=== PATIENT | female | born 1980 | race Caucasian/White ===

== ENCOUNTER 2023-10-14 09:46 | Outpatient (CLI) | payer OTHER, SELFPAY ==
--- NOTE | 2023-10-14 09:46 | MM_ITS ---
PROCEDURE INFORMATION: Exam: MG Bilateral Screening 3D Mammography Exam date and time: 10/14/2023 9:43 AM Age: 43 years old Clinical indication: Screening mammogram TECHNIQUE: Imaging protocol: Bilateral Screening tomosynthesis and 2D mammography including computer-aided detection (CAD) when performed. COMPARISON: No relevant prior studies available. FINDINGS: MAMMOGRAPHY: Breast composition: There are scattered areas of fibroglandular density. Mass: None. Architectural distortion: No new or suspicious architectural distortion. Calcifications: No new or suspicious calcifications are present Asymmetric density: No new or suspicious asymmetric density is present Skin thickening: None. Axillary adenopathy: None. Implants: Subpectoral saline augmentation implants are present. IMPRESSION: No mammographic evidence of malignancy. Recommend annual screening mammography unless otherwise clinically indicated. ASSESSMENT: BI-RADS category 1: Negative
== END 2023-10-14 23:59 ==
LOC: RAD 09:46
PROVIDERS: PCP Nurse Practitioner; Visit Provider Obstetrics & Gynecology
DX: Z12.31 Encounter for screening mammogram for malignant neoplasm of breast (principal)
CPT/HCPCS: 77063; 77067

== ENCOUNTER 2023-11-12 15:45 | Outpatient (CLI) | payer OTHER, SELFPAY ==
[2023-11-12 16:02] LABS: Basophils # 0.1 K/mm3 (0-0.2); Basophils % 0.9 % (0.1-2.0); Eosinophils # 0.2 K/mm3 (0.0-0.4); Eosinophils % 1.8 % (0.1-12.0); Hematocrit 40.3 % (37.0-47.0); Hemoglobin 13.3 g/dL (12.2-16.2); Lymphocytes # 2.9 K/mm3 (0.7-4.5); Lymphocytes % 29.6 % (10-50); Mean Corpuscular Volume 90.9 fl (81-99); Mean Platelet Volume 8.8 fl (7.4-10.4); Monocytes # 0.4 K/mm3 (0.1-1.0); Monocytes % 4.6 % (1.7-9.3); Neutrophils # 6.1 K/mm3 (1.8-7.8); Neutrophils % 63.2 % (37.0-80.0); Platelet Count 281 K/mm3 (142-424); Red Blood Count 4.43 M/mm3 (4.20-5.40); Red Cell Distribution Width 14.3 % (11.5-17.5); White Blood Count 9.7 K/mm3 (4.8-10.8)
[2023-11-12 16:43] LABS: Alanine Aminotransferase 21 U/L (12-78); Albumin Level 4.3 g/dl (3.5-5.0); Albumin/Globulin Ratio 1.4 (1.1-1.8); Alkaline Phosphatase 86 U/L (38-126); Anion Gap 12.1 mEq/L (5-15); Aspartate Amino Transferase 22 U/L (14-36); Bilirubin,Total 0.3 mg/dl (0.2-1.3); Blood Urea Nitrogen 12 mg/dl (7-17); Calcium 9.2 mg/dl (8.4-10.2); Carbon Dioxide 23 mmol/L (22.0-30.0); Chloride 107 mmol/L (98-107); Estimated Glomerular Filt Rate 90 ml/min (>60); GFR (African American) 109 ML/MIN (>60); Glucose 99 mg/dl (74-100); Potassium 4.1 mmoL/L (3.5-5.1); Sodium 138 mmol/L (136-145); Total Protein,Serum 7.3 g/dl (6.3-8.2)
[2023-11-12 17:01] LABS: HCG,Quantitative < 2 mIU/ml (0-5.42)
== END 2023-11-12 23:59 ==
LOC: LAB 15:47
PROVIDERS: PCP Nurse Practitioner; Visit Provider Obstetrics & Gynecology
DX: N93.9 Abnormal uterine and vaginal bleeding, unspecified (principal)
CPT/HCPCS: 36415; 80053; 84702; 85025

== ENCOUNTER 2023-11-19 05:52 | Day surgery (SDC) | payer OTHER, SELFPAY ==
[2023-11-15 09:01] VITALS: BMI 41.6
[2023-11-19] VITALS (11 sets, daily range): BP systolic 120–146; BP diastolic 70–90; PULSE 71–95; RESP 15–18; TEMP 36.2–43; O2SAT 94–100
[2023-11-19 06:19] LABS: Urine Pregnancy, HCG Qual. Negative (Negative)
[2023-11-19] MEDS: LACTATED RINGERS 1000ML 1,000 ML 100 ML IV (06:20)
--- NOTE | 2023-11-19 06:49 | EXP.ANES.CKL ---
[facility] Disclaimer: The information contained in this section may have been updated after the patient was seen, as this information can be updated by other users. Medical History Obesity History of anxiety History of depression Surgical History Hx of colposcopy with cervical biopsy Hx of tubal ligation Hx of cholecystectomy Hx of breast augmentation Hx of section History of placement of ear tubes Hx of tonsillectomy Family History Mother Cancer Breast cancer Grandfather Cancer Stomach cancer Grandmother FHx: mental illness Anxiety and depression. Grandmother Diabetes Social History Smoking Status: Current some day smoker alcohol intake: current substance use type: marijuana current occupational status: employed Travel in the last 8 weeks: None [facility] Anesthesia Checklist Patient Identification Patient Identification: Arm Band and Family Structural Data Admitted From: Home Planned Operative Procedure/s: Hysteroscopy. Novsure. Mosure. Removl of condyloma. Consent for Planned Operative Procedure(s) Verified: Yes Verified Documents: Surgical Consent and History and Physical NPO Status Verified Time NPO: 00:00 Additional verifications Patient : No Anesthesia Reactions: Yes (nausea) Hx Blood Transfusions: No Blood Transfusion Reaction: No Cephalosporin Allergy: No Previous Colonoscopy: No Airway Assessment Mallampati Score:: Class I C-Spine Mobility Assessed: Yes TMJ Mobility Assessed: Yes Dentition: Good Dentition Neurological Assessment Level of Consciousness: Awake, Alert, Appropriate and Follows Commands Hx Seizures: No Numbness or tingling in extremities: No Anesthesia Plan Anesthesia Risk discussed: Yes ASA Class: II Anesthesia Type: General Preoperative Comments Pre-Operative Comments: PONV, Scopolamine patch.
--- NOTE | 2023-11-19 08:25 | P.PNANES_ITS ---
[facility] Anesthesia Record Part I Anesthesia Record I Intake, IV Amount: 500 Hydration: Adequate Estimated blood loss (mL): 10 Urine output (mL): 50 Blood Products used (#): none Blood Pressure: 129/70 SaO2: 94 Pulse Rate: 95 Airway Patency: Patent Respiratory Rate: 18 Temperature: 97.5 F Patient is:: Drowsy and Stable Stable to PACU at:: 08:20
[2023-11-19] MEDS: MORPHINE 2MG/ML SYRINGE 2 MG IV ×3 (08:36→08:51)
--- NOTE | 2023-11-19 09:25 | EXP.OP.NOTE ---
Date of procedure: 11/19/23 Pre-op Diagnosis:: 1. Abnormal uterine bleeding 2. Heavy uterine bleeding 3. Pelvic pain Post-op Diagnosis:: 1. Abnormal uterine bleeding 2. Heavy uterine bleeding 3. Pelvic pain Procedure performed:: Hysteroscopy, dilation, and MyoSure curettage, NovaSure endometrial ablation. Genital lesion excision Surgeon:: Paz Welsh DO NATURAL RESOURCES TECHNICIAN:: Other (Mike Barksdale) Anesthesia: GETA Estimated blood loss (mL): 10 Operative findings:: Findings: -EUA revealed an 8-week anteverted uterus with regular contour. Grade 2 apical descent. -Hysteroscopy revealed diffusely proliferative endometrium. However I do suspect there was polypoid tissue both anteriorly and posteriorly. Tubal ostia were visualized and images were obtained. -The area where genital condylomas were previously suspected on the right inner labia has almost completely resolved. There was a small lesion at the left groin/buttock area that was possibly just a skin tag versus condyloma. Operative note:: The patient was taken back to the OR where general anesthesia was obtained.? She was placed in the dorsal lithotomy position using yellowfin stirrups and sterilely prepped and draped in the usual fashion.? A timeout was performed.? A thorough vaginal exam was completed and noted above. A weighted speculum was used to visualize this cervix, a single-tooth tenaculum was applied to the anterior lip of the cervix. The cervix was slightly dilated to allow entry to the ectocervix and hydrodisection was used to get the scope the rest of the way into the cavity. The hysterscope was inserted and diffusely proliferative endometrium was noted as described above. Images were obtained of the cavity. Images of the tubal ostia were obtained..? Decision was made to proceed with the MyoSure for polypectomy/uterine curettage. Device set up, primed and zeroed. The device was used to resect endometrial polyps and proliferative endometrium. At the conclusion there was a fluid deficit less than 100 mL. Total myosure cutting time was 2minutes 40seconds. Following complete removal of the polyps the MyoSure hysteroscope was removed.? The uterus sounded to 8cm, with a cervical length of 3 cm. The Novasure device was opened, deployed, and noted to be functioning properly. The device was inserted to the fundus, set to a length of 5cm, and deployed to a width of 4.8cm. Cavity integrity was assessed and adequate. The ablation was started and a power of 132W was noted. Total ablation time was 1:03 minutes. The Novasure device was removed from the cervical os and the hysterscope was reinserted. The endometrium was noted to be successfully ablated. All instruments were removed from the vagina. Hemostasis was noted at the tenaculum sites. Pickups and Metzenbaum scissors were used to remove the vaginal skin lesion. Pressure was held and it was noted to be mostly hemostatic. The Bovie was used to touch center of the patient for hemostasis prophylaxis. This lesion will be sent to pathology for further evaluation. All counts were correct, per nursing. This concluded the procedure, the pt was awakened from anesthesia and transferred to the PACU in stable condition. The pt will be given 30mg IV Toradol postoperatively for pain control. Condition: stable Disposition: PACU Specimens:: Endometrial polyp/curettings Pelvic groin lesion Complications:: None
--- NOTE | 2023-11-20 10:13 | P.PNANES_ITS ---
[facility] Anesthesia Record Part II Anesthesia Record Part II Discharge Time: 08:50 Destination: Surgical Day Care (OP Surgery) PACU nurse assessment reviewed?: Yes Patient Condition:: Good Anesthesia Complications:: None Swallowing reflex intact?: Yes Airway Patency: Patent Cyanosis?: No Blood Pressure: 136/86 SaO2: 98 Respiratory Rate: 15 Pulse Rate: 82 Temperature: 97.2 F Mental Status: Alert & Oriented Pain level:: 4 Nausea and/or vomitting:: None Intake, IV Amount: 0 Hydration: Adequate
[2023-11-20 10:14] VITALS: BP 136/86; PULSE 82; RESP 15; TEMP 36.2; O2SAT 98
== END 2023-11-19 10:02 | disposition home or self-care (01) ==
PROVIDERS: PCP Nurse Practitioner; Visit Provider Obstetrics & Gynecology
PROC: (CPT 58563; principal; 2023-11-19 07:30)
DX: N93.9 Abnormal uterine and vaginal bleeding, unspecified (principal); R10.2 Pelvic and perineal pain; N71.1 Chronic inflammatory disease of uterus; L82.1 Other seborrheic keratosis
CPT/HCPCS: 58563; 11422; 81025; J2405

== ENCOUNTER 2025-03-02 18:37 | Outpatient (CLI) | payer OTHER, SELFPAY ==
--- OUTSIDE RECORDS SUMMARY | 2020-04-12 11:33 | XMS_ITS | Continuity of Care Document ---
Author Organization [facility] o Address [address] [place] [address] Phone Care Team Providers Care Job Placement Specialist Name Role Phone Jas WARNER, Vikas Unavailable Unavailable Procedures Procedure Date Office/outpatient visit,est, mod 2019 MRI Lwr Ext Joint wo Contrast 0 Office/outpatient visit,new, mod 2019 X-ray exam of knee, 4+ views Crutch underarm pair no wood Advance Directives Directive Yes / No Effective Date File Name No Information Encounters Encounter Description Practice Location Reason(s) For Visit Diagnoses Date Provider Providers Copied on Encounter [facility] [place] [place], [address], [place] tel:[phone] 00 [facility] [place] No Information 0 Jas Bean. Jessica [place], [id number] , [place]. tel:[phone] Referring Provider: Rickey Correa E [facility] [place], [address] . tel:[phone] Office/outpat ient visit,est, mod [facility] [place], [address] [place] [address] [place], [address], [place] tel:[phone] 00 [facility] [place] Pain in left kneeLoose body in knee, left kneeOther articular cartilage disorders, unspecified site 0 Jas Bean. Rickey E [place], [place], [address] [place] [address] , [place]. [phone] Referring Provider: Vikas Ley, [address] [place], [address] . tel:[phone] [facility], [facility] E [place], [place], [facility], tel:[phone] 00 [facility] No Information 0 Jas Vikas. Rickey [address] Jessica [place]ahn[place], [place], [address] [place] [address] , [place]. [phone] Referring Provider: Vikas Ley, [address] [place], [address] . tel:[phone] Office/outpat ient visit,[facility] [place] [place], [place], [facility], tel:[phone] 00 [facility] Oth meniscus derangements , other medial meniscus, left knee [address], [place], [place], [address] [place] [address] , [place]. [phone] [facility] E [place], [place], [facility], tel:[phone] 00 [facility] No Information 0 Jas Bean. Rickey [address] Jessica kahn[place], [place], [address] [place] [address] , . tel:[phone] Family History Family Member Type Diagnosis Age At Onset No Information Payers Payer name Insurance type Covered constitution party ID Authorkt rebolledo(s) [place] - [id number] Social History Type Description Quantity Date Captured Comments Sex Female Smoking Status No Information Gender Identity Female Chief Complaint And Reason For Visit No Information Reason For Referral Reason For Referral No Information Plan Of Treatment Date Type Action Status Future Order: Radiology Order MR I Knee WO Contrast ([id number]), Collected on: , Sent on: Sent History Of Present Illness Encounter Date Complaint History Of Prese nt Illness No Information Functional Status Date Functional Assessmen t No Information Instructions Date Instruction Additional Infor mation No Information Assessments Type Assessment Date No Information Patient Care Teams Name Effective Dates (start - stop) Status Members No Information
--- OUTSIDE RECORDS SUMMARY | 2025-03-02 18:39 | XMS_ITS | Clinical Summary ---
Author Organization [facility] Address [address] [place] [address] Care Team Providers Care Tiler'S Assistant Name Role Phone Ev Lowery Primary Care Provider Allergies No known active allergies Medications PROPRANOLOL HCL (PROPRANOLOL PO) Take by mouth. Active Social History Tobacco Use Types Packs/Day Years Used Date Smoking Tobacco: Every Day Cigarettes Alcohol Use Standard Drinks/Week Comments No 0 (1 standard drink = 0.6 oz pur e alcohol) Comments Unknown Sex and Gender Information Value Date Recorded Sex Assigned at Not on file Legal Sex Female 4:28 PM EDT Gender Identity Not on file Sexual Orientation Not on file Last Filed Vital Signs Vital Sign Reading Time Taken Comments Blood Pressure 105/76 12/07/2016 8:00 PM EDT Pulse 70 12/07/2016 8:00 PM EDT Temperature 36.8 C (98.2 F) 12/07/2016 4:57 PM EDT Respiratory Rate 17 12/07/2016 8:00 PM EDT Oxygen Saturation 100% 12/07/2016 8:00 PM EDT Inhaled Oxygen Concentration - - Weight 114.3 kg (252 lb) 12/07/2016 5:18 PM EDT Height 170.2 cm (5' 7 ) 12/07/2016 5:16 PM EDT Body Mass Index 39.47 12/07/2016 5:16 PM EDT Plan of Treatment Not on file Insurance ANTHEM Care Teams Tiler'S Assistant Relationship Specialty Start Date End Date Ev Lowery [address] [place] [id number] PCP - General Family Medicine 12/07/16
--- OUTSIDE RECORDS SUMMARY | 2025-03-02 18:39 | XMS_ITS | Clinical Summary ---
Author Organization [facility] Address [address] [place] [address] Care Team Providers Care Slip Seat Coverer Name Role Phone Ev Lowery MD Primary Care Provi clarita Unavailable Source Comments This information has been disclosed to you from confidential records protectedfrom disclosure by state law. You shall make no further disclosure of thisinformation without the specific, written, and informed release of theindividual to whom it pertains, or as otherwise permitted by law. A generalauthorization for the release of medical or other information is not sufficientfor the purposes of therelease of HIV test results or diagnoses. [id number] Allergies No known active allergies Active Problems Problem Noted Date Diagnosed Date Abdominal pain, other specified site 07/26/2009 Urinary tract infection, site not specified 07/03 Papanicolaou smear of cervix with low grade squamous intraepithelial lesion (LGSIL) 04/12/2009 Encounter for routine gynecological examination 03/25/2009 Overview (06/02/2015): ICD-10 Transition Social History Tobacco Use Types Packs/Day Years Used Date Smoking Tobacco: Heavy Smoker Cigarettes Alcohol Use Standard Drinks/Week Comments No 0 (1 standard drink = 0.6 oz pur e alcohol) Comments Unknown Sex and Gender Information Value Date Recorded Sex Assigned at Not on file Legal Sex Female 4:16 PM EST Gender Identity Not on file Sexual Orientation Not on file Last Filed Vital Signs Vital Sign Reading Time Taken Comments Blood Pressure 126/81 11/08/2015 9:23 PM EST Pulse 76 11/08/2015 9:23 PM EST Temperature 36.8 C (98.2 F) 11/08/2015 9:09 PM EST Respiratory Rate 16 11/08/2015 9:23 PM EST Oxygen Saturation 100% 11/08/2015 9:23 PM EST Inhaled Oxygen Concentration 100% 11/08/2015 9 :23 PM EST Weight 99.8 kg (220 lb) 11/08/2015 7:37 PM EST Height 167.6 cm (5' 6 ) 11/08/2015 7:37 PM EST Body Mass Index 35.51 11/08/2015 7:37 PM EST Plan of Treatment Not on file Care Teams Slip Seat Coverer Relationship Specialty Start Date End Date Ev Lowery MD PCP - General Family Medicine 11/08/15
--- OUTSIDE RECORDS SUMMARY | 2025-03-02 18:39 | XMS_ITS | Clinical Summary ---
Author Organization [facility] Address [address] [place] [address] Care Team Providers Care Can Slider Name Role Phone Unavailable Primary Care Provider Unavailabl e Allergies No known active allergies Medications propranolol (INDERAL) 10 MG tablet Take 10 mg by mouth 2 times daily Active ibuprofen (ADVIL;MOTRIN) 800 MG tablet Take 800 mg by mouth daily as needed for Pain Active SUMATRIPTAN NA by Nasal route Active butalbital-APAP -caffeine (FIORICET) 50-300-40 MG CAPS per capsule Take 1 capsule by mouth every 4 hours as needed for Headaches or Migraine 10 capsule 9 Active Social History Tobacco Use Types Packs/Day Years Used Date Smoking Tobacco: Every Day Cigarettes Smokeless Tobacco: Never Alcohol Use Standard Drinks/Week Comments Not Currently 0 (1 standard drink = 0.6 oz pur e alcohol) Comments No Sex and Gender Information Value Date Recorded Sex Assigned at Not on file Legal Sex Female 1:33 PM EDT Gender Identity Not on file Sexual Orientation Not on file Last Filed Vital Signs Vital Sign Reading Time Taken Comments Blood Pressure 121/75 05/26/2019 3:30 PM EDT Pulse 90 05/26/2019 1:43 PM EDT Temperature 36.8 C (98.3 F) 05/26/2019 1:43 PM EDT Respiratory Rate 18 05/26/2019 1:43 PM EDT Oxygen Saturation 100% 05/26/2019 3:30 PM EDT Inhaled Oxygen Concentration - - Weight 117.5 kg (259 lb) 05/26/2019 1:43 PM EDT Height - - Body Mass Index - - Plan of Treatment Not on file Insurance
--- OUTSIDE RECORDS SUMMARY | 2025-03-02 18:39 | XMS_ITS | Clinical Summary ---
Author Organization [facility] Address [address] [place], [place] [address] Phone Care Team Providers Care Technical Cable Jointer Name Role Phone Ev Nicole MD Unavailable Un available Paul Hutchins MD Unavailable Allergies No known active allergies Medications * This document contains information received from the source organization and may not represent a complete record from that organization. busPIRone (BUSPAR) 10 mg Oral TabletIndication s:Anxiety with depression Take 1 Tablet by mouth 2 times daily. 60 Tablet 2 2 Active Additional Information Patient not taking.Reason: Unable to tolerate, Reported on 01/18/2023 ergocalciferol (VITAMIN D) 1,250 mcg (50,000 unit) Oral Capsule Take 1 Capsule by mouth once a week. 12 Capsule 1 3 Active ibuprofen (ADVIL;MOTRIN) 800 mg Oral TabletIndication s:Intractable migraine without aura and without status migrainosus,Pain in both knees, unspecified chronicity Take 1 Tablet by mouth every 8 hours as needed for Pain. 90 Tablet 2 3 Active buPROPion (WELLBUTRIN XL) 150 mg Oral Tablet Sustained Release 24 hrIndications:An xiety with depression Take 1 Tablet by mouth every morning. 30 Tablet 1 3 Active albuterol (PROVENTIL HFA;VENTOLIN HFA) 90 mcg/actuation Inhl HFA Aerosol InhalerIndicatio ns:COVID-19 virus detected INHALE 2 PUFFS BY MOUTH EVERY 4 HOURS NEEDED FOR WHEEZE 6.7 Each 4 Active Active Problems Problem Noted Date Diagnosed Date Vitamin D deficiency 03/10/2019 LAYLA II (cervical intraepithelial neoplasia II) 0 02/28/2016 Low grade squamous intraepit helial lesion on cytologic smear of cervix (LGSIL) 01/13/2016 Overview (01/13/2016): As of 01/2016, has had 3 abnormal pap smears - once during with f/u pap normal; CIN1 s/p colpo that was normal per pt; CIN1 in 11/2015 Chondromalacia of left patella 02/11/2015 History of aspiration pneumonitis 12/25/2014 History of drug abuse in remission 08/31/2013 Overview (05/01/2016): Prescription pain pills H/O suicide attempt 11/29/2012 Overview (12/25/2014): Laceration on arm and OD. Resulted in ICU admission Well woman exam with routine gynecological exam 09/23/2012 Obesity 09/23/2012 Paresthesia 07/03/2012 Anemia 07/03/2012 Weight gain 01/08/2012 Lower extremity edema 01/08/2012 Tobacco use disorder 01/08/2012 Anxiety with depression Dysplasia of cervix GERD (gastroesophageal reflux disease) Resolved Problems Problem Noted Date Diagnosed Date Resolved Date Gallstones 11/26/2018 03/10/2019 Overview (11/26/2018): Added automatically from request for surgery [id number] Other social stressor 12/25/20142018 Overview (12/25/2014): Was incarcerated in [id number]. Bipolar 2 disorder, major depressive episode 3 03/10/2019 Aspiration pneumonia 04/25/2013 015 Adjustment disorder 04/25/2013 04/27/20 13 Hypokalemia 11/29/2012 11/29/2012 Respiratory infection 10/03/20122014 Otitis media 10/03/2012 12/25/2014 Fibromyalgia 03/10/2019 ADHD (attention deficit hype ractivity disorder) 03/10/2019 Cervical dysplasia 5 Immunizations Immunization Administration Dates Next Due Influenza Vaccine, Unspecified Formulation 06/02 Moderna SARS-CoV-2 Vaccine 12+ Yrs (Light blue b order) 10/19/2020,09/07/2020 Td, Unspecified Formulation 02/01/2008 Surgical History Surgery Date Site/Laterality Comments TONSILLECTOMY TYMPANOSTOMY TUBE PLACEMENT TUBAL LIGATION SECTION 2 LACERATION REPAIR 04/24/2013 BREAST SURGERY augmentation LEEP 02/28/2016 N/A LOOP ELECTROSURGICAL EXCISION PROCEDURE ; Surgeon: Vikas Zeng MD; Location: [facility] MAIN OR; Service: Gynecology CHOLECYSTECTOMY 12/05/2018 N/A ROBOTIC CHOLECYSTECTOMY ; Surgeon: John Mendez MD; Location: [facility] MAIN OR; Service: Robotics Medical History Medical History Date Comments Cervical dysplasia had colposcop y 2008 Anxiety Fibromyalgia GERD (gastroesophageal reflux disease) ADHD (attention deficit hype ractivity disorder) Suicide attempt (HCC) 04/24/2013 laceration of forearm & od, req. icu admission. Anemia Post-operative nausea and vomiting Motion sickness Headache Vertigo Family History Medical History Relation Name Comments Early Father Stomach Cancer Maternal Grandfather Depression Maternal Grandmother Diabetes Paternal Grandfather Heart Disease Paternal Grandfather Lung Cancer Paternal Grandfather Diabetes Paternal Grandmother Hypertension Paternal Grandmother Kidney Disease Paternal Grandmother Alcohol Abuse Sister 1 Anxiety Disorder Sister 1 Depression Sister 1 Bipolar Disorder Sister 2 Anesth Problems Neg Hx Breast Cancer Neg Hx Colon Cancer Neg Hx Relation Name Status Comments Father Maternal Grandfather Maternal Grandmother Alive Mother Alive Paternal Grandfather Paternal Grandmother Alive Sister 1 Alive Sister 2 Alive Social History Tobacco Use Types Packs/Day Years Used Date Smoking Tobacco: Every Day Cigarettes 0.3 22 Smokeless Tobacco: Never Tobacco Cessation:Ready to Q uit: Not Asked; Counseling Given: Not Answered Comments:Trying To Quit Alcohol Use Standard Drinks/Week Comments No 1 (1 standard drink = 0.6 oz pur e alcohol) quit Overall Financial Resource Strain (CARDIA) Answe r Date Recorded How hard is it for you to pa y for the very basics like food, housing, medical care, and heating? Not hard at all 04/27/2020 PHQ-2 Answer Date Recorded PHQ-2 Total Score 2 01/05/2021 Hunger Vital Sign Answer Date Recorded Within the past 12 months, y ou worried that your food would run out before you got the money to buy more. Never true 04/27/20 20 Within the past 12 months, t he food you bought just didn't last and you didn't have money to get more. Never true 04/27/2020 PRAPARE - Transportation Answer Date Re corded In the past 12 months, has l ack of transportation kept you from medical appointments or from getting medications? No 04/03 In the past 12 months, has l ack of transportation kept you from meetings, work, or from getting things needed for daily living? No 04/27/2020 Sexually Active Control Partners Comments Yes Surgical Male Comments No Sex and Gender Information Value Date Recorded Sex Assigned at Not on file Legal Sex Female 5:28 PM EDT Gender Identity Not on file Sexual Orientation Not on file Occupation Industry Job Start Date Job End Date nurse Not on file Not on file Not on file Obstetrics History Para Term AB IAB SAB Ectopic Multiple Livin g Live Births 3 3 3 3 3 Date Outcome GA Total Labor Labor/2nd/3rd Weight Sex Type Anes PTL Roula A1 A5 Name Clin Term M Vag-S pont N Living Term F CS-Un spec N Living Term M CS-Un spec N Living Comments x1 x2 Last Filed Vital Signs Vital Sign Reading Time Taken Comments Blood Pressure 112/84 01/18/2023 10:47 AM EDT Pulse 84 01/18/2023 10:47 AM EDT Temperature 36.6 C (97.9 F) 01/18/2023 10:47 AM EDT Respiratory Rate 16 08/14/2021 7:16 PM EST Oxygen Saturation 98% 01/18/2023 10: 47 AM EDT Inhaled Oxygen Concentration - - Weight 116.7 kg (257 lb 3.2 oz) 023 10:47 AM EDT Height 170.2 cm (5' 7 ) 01/18/2023 10:4 7 AM EDT Body Mass Index 40.28 01/18/2023 10:47 AM EDT Plan of Treatment Health Maintenance Due Date Last Done Comments Annual Wellness Exam 1981 Pneumococcal Vaccine 0-49 (1 of 2 - PCV) 1997 DTaP/TDaP/Td (1 - Tdap) 02/02/2008 02/01/2008 HPV/Pap Cotest 2008 Breast Cancer Screening 2018 06/15/2016 Cervical Cancer Screening 01/05/2022 Pap Smear 01/05/2022 01/05/2021, 10/31, 10/19/2016, Additional history exists Hepatitis B Vaccine (3 of 3 - 19+ 3-dose series) 09/19/2023 04/16/2023, 03/19/2023 Cologuard 2023 Colon Cancer Screening 2023 Colonoscopy 2023 FIT 2023 Sigmoidoscopy 2023 Virtual Colonography 2023 COVID-19 Vaccine ( season) 2024 10/19/2020, 09/07/2020 Influenza Vaccine (Season Ended) 2025 11/11/2015 (Declined), 06/02/2011 Meningococcal B Vaccine Aged Out No l onger eligible based on patient's age to complete this topic Goals Goal Patient Goal Type Associated Problems Recent Progress Patient-Stated? Author quit smoking General Not on track( 016 11:25 AM EST) Yes Ev Nicole MD Maintain a healthy diet, exercise regularly and maintain an ideal body weight General No Felicity Andrews APRN Stay Tobacco Free Lifestyle No Felicity Andrews APRN Medical Devices Implanted Type Area Therapy Assistant Device Identifier Shelf Expiration Date Model / Serial / Lot Breast Procedures Procedure Name Priority Date/Time Associated Diagnosis Comments TELECASTING ENGINEER CYTOLOGY REQUEST (PAP ONLY) Routine 01/05/2021 1:42 PM EDT Well woman exam with routine gynecological exam MM MAMMO DIGITAL KAT SCREEN AUG BILAT Routine 06/15/2016 2:12 PM EDT Encounter for screening mammogram for breast cancer from Last 3 Months or Most Recently Relevant to Health Maintenance Results * TELECASTING ENGINEER CYTOLOGY REQUEST (PAP ONLY) (01/05/2021 1:42 PM EDT) CASE REPORT Gynecologic Cytology Report Case: [id number] Authorizing Provider: Felicity Andrews ARNP Collected: 01/05/2021 1342 Ordering Location: [facility] [place] Received: 01/05/2021 1342 First Screen: Adelso Conklin CT Specimen: LIQUID-BASED PAP - CERVICAL/ENDOCERV ICAL, Cervix, Endocervical 01/09/2021 12:33 PM EDT [facility] PAP FINAL DIAGNOSIS Negative for intraepithelial lesion or malignancy 01/09/2021 12:33 PM EDT [facility] at 1233 EDT MICROSCOPIC DESCRIPTION Microscopic examination is performed and the findings corroborate the diagnosis 01/09/2021 12:33 PM EDT [facility] PAP SMEAR ADEQUACY Satisfactory for evaluation 01/09/2021 12:33 PM EDT [facility] ENDOCERVICAL T-ZONE Transformation zone absent. This is not unusual in a woman 01/09/2021 12:33 PM EDT [facility] EMBEDDED IMAGES 12:33 PM EDT [facility] PAP DISCLAIMER The Pap Smear is a screening test that aids in the detection of cervical cancer and cancer precursors. Both false positive and false negative results can occur. The test should be used at regular intervals, and positive results should be confirmed before definitive therapy. Processed using the ThinPrep English Instructor Automated cytology screening device (Physitrack). 01/09/2021 12:33 PM EDT [facility] Thin Prep ENDOCERVICAL STRUCTURE / Unknown 01/05/2021 1:42 PM EDT 01/05/2021 1:42 PM EDT Felicity Andrews APRN CYTOLOGY ORDERABLES Final Result [facility] [address] [place] [id number] * MM MAMMO DIGITAL KAT SCREEN AUG BILAT (06/15/2016 2:12 PM EDT) Anatomical Region Laterality Modality Breast Bilateral Mammography 06/17/2016 8:04 AM EDT Impressions 06/18/2016 7:38 AM EDT Negative ([id number]) ~ RECOMMENDATION: Routine screening mammogram at age 38. ~ * The patient with a palpable abnormality, unexplained by breast imaging, should be managed on clinical basis by the attending physician. * Breast imaging has a false negative rate of 15%. * The patient was notified by mail of the results of this examination. *The patient's information was entered into a reminder system with a target due date for the next mammogram. Narrative 06/18/2016 7:38 AM EDT Procedure:MM MAMMO DIGITAL KAT SCREEN AUG BILAT ~ Reason for exam: history of breast augmentation, asymptomatic. ~ MM MAMMO DIGITAL KAT SCREEN AUG BILAT There are scattered fibroglandular densities. Bilateral implants present. No suspicious calcifications. ~ us Ev Kennedy MD IMG MAMMOGRAPHY ORD ERABLES Final Result from Last 3 Months or Most Recently Relevant to Health Maintenance Advance Directives For more information, please contact: [phone] * Full Code (Latest Code Status on File) Date Activated Date Inactivated Comments 04/25/2013 8:14 AM 04/25/2013 5:36 PM * Full Code Date Activated Date Inactivated Comments 11/28/2012 6:33 PM 11/29/2012 6:09 PM Care Teams Technical Cable Jointer Relationship Specialty Start Date End Date Ev Nicole MD Family Medicine 03/02/13 Paul Hutchins MD [facility] [place] [id number] [place] [phone] Consulting Physician Orthopaedic Surgery 02/11/15
--- OUTSIDE RECORDS SUMMARY | 2025-03-02 18:39 | XMS_ITS | Clinical Summary ---
Author Organization [facility] Address [address] [place] [address] Phone [email or web address] Care Team Providers Care Party Coordinator Name Role Phone Corie Blair Primary Care Provider Unavailabl e Allergies Active Allergy Reactions Criticality Noted Date Comments Buspirone GI intolerance 05/29/2024 Medications buPROPion XL (Wellbutrin XL) 300 MG 24 hr tabletIndication s:Anxiety with depression Take 1 tablet (300 mg total) by mouth 1 (one) time each day. Do not crush, chew, or split. 90 tablet 05/29/2024 05/29/20 25 Active omeprazole (PriLOSEC) [address] capsuleIndicatigregor ns:Gastroesophag eal reflux disease, unspecified whether esophagitis present Take 1 capsule (40 mg total) by mouth 1 (one) time each day. Do not crush or chew. 90 capsule 05/29/2024 05/29/20 25 Active predniSONE (DELTASONE) 10 MG tabletIndication s:Pleurisy,ETD (Eustachian tube dysfunction), right Take 4 a day for 3 days then 3 a day for 3 days then 2 for 3d then 1 for 3d then stop 30 tablet 05/29/2024 Active albuterol HFA 108 (90 Base) MCG/ACT inhalerIndicatio ns:Pleurisy Inhale 2 puffs every 6 (six) hours if needed for wheezing. 6.7 g 05/29/2024 Active Semaglutide, 1 MG/DOSE, 4 MG/3ML solution pen-injectorIndi cations:Hypergly cemia Inject 1 mg under the skin per week. 3 mL 2 07/14/2024 Active estradiol (ESTRACE VAGINAL) 0.1 MG/GM vaginal creamIndications :Perimenopausal Insert 1 g into the vagina 2 (two) times a week. 42.5 g 1 07/06/2024 Active Active Problems Patient Care Coordination No te Formatting of this note migh t be different from the original. PCP Identified: Yes Date: 05/19/2024 Inquired about PCP attribution. Member has a primary care provider. Member declined to attribute to a clinic provider today and information reflects has been updated Problem Noted Date Diagnosed Date GERD (gastroesophageal reflux disease) 4 Fibromyalgia 05/29/2024 Arthritis 05/29/2024 Anxiety with depression 05/29/2024 Vitamin D deficiency 03/10/2019 LAYLA II (cervical intraepithelial neoplasia II) 0 02/28/2016 Chondromalacia of left patella 02/11/2015 Paresthesia 07/03/2012 Anemia 07/03/2012 Tobacco use disorder 01/08/2012 Lower extremity edema 01/08/2012 Low grade squamous intraepit helial lesion on cytologic smear of cervix (LGSIL) 04/12/2009 Overview (05/29/2024): As of 01/2016, has had 3 abnormal pap smears - once during with f/u pap normal; CIN1 s/p colpo that was normal per pt; CIN1 in 11/2015 Immunizations Immunization Administration Dates Next Due Hep B, unspecified (CVX-45) 04/16/2023, 3 Td, adsorbed, PF, adult, Lf, unspecified (CVX-19 6) 02/01/2008 Family History Medical History Relation Name Comments Alcohol abuse Father Sea- Drug abuse Father Sea- Drug/Alcohol assessment Father Sea- Early Father Sea- Cancer Maternal Grandfather Andrae- Stomach cancer Maternal Grandfather Andrae- Depression Maternal Grandmother Shayy Mental illness Maternal Grandmother Shayy Breast cancer Mother Cleopatra- Cancer Mother Cleopatra- Breast Cancer Paternal Grandfather Brent- Diabetes Paternal Grandfather Brent- Heart disease Paternal Grandfather Brent- Diabetes Paternal Grandmother [place]- Heart disease Paternal Grandmother Wilmer- Kidney disease Paternal Grandmother Wilmer- Alcohol abuse Sister 1 December Depression Sister 1 December Mental illness Sister 1 December Depression Sister 2 Dorota Mental illness Sister 2 Dorota Relation Name Status Comments Father Sea- Maternal Grandfather Andrae- Maternal Grandmother Shayy Mother Cleopatra- Paternal Grandfather Brent- Paternal Grandmother Wilmer- Sister 1 December Sister 2 Dorota Social History Tobacco Use Types Packs/Day Years Used Date Smoking Tobacco: Every Day Cigarettes 0.5 25 Smokeless Tobacco: Never Alcohol Use Standard Drinks/Week Comments Not Currently 0 (1 standard drink = 0.6 oz pur e alcohol) Alcohol Use Answer Date Recorded Alcohol Use Status Not Currently 05/29/2024 Financial Resource Strain Answer Date R ecorded In the past 12 months has th e electric, gas, oil, or water company threatened to shut off services in your home? No 05/25/2024 Do problems getting child ca re make it difficult for you to work or study? No 05/25/2024 Do you have a high school degree? Yes 05/25/2024 Do you have a job? Yes 05/25/2024 How often does this describe you? I don't have enough money to pay my bills. Rarely 05/25/2024 Stress Answer Date Recorded Stress in your Life Moderate 08/24/2024 Dealing with Stress Moderately effective 024 Physical Activity Answer Date Recorded How often do you engage in m oderate physical activity for 30 minutes or more? 1 to 3 days a week 05/25/2024 Vigorous Physical Activity Never 05/25 Time Spent Sitting 4 to 6 hours 05/25/2024 Food Insecurity Answer Date Recorded Within the past 12 months, y ou worried that your food would run out before you got money to buy more. Never true 05/25/2024 Within the past 12 months, t he food you bought just didn t last and you didn t have money to get more. Never true 05/25/2024 Transportation Needs Answer Date Record ed In the past 12 months, has l ack of transportation kept you from medical appointments, meetings, work, or from getting things needed for daily living? (check all that apply) No 2023 Housing Stability Answer Date Recorded Are you worried or concerned that in the next two months you may not have stable housing that you own, rent, or stay in as a part of a household? No 05/25/[address] you li ve. Do you have problems with any of the following? (check all that apply) Mold;Water leaks 05/04 Comments Unknown Sex and Gender Information Value Date Recorded Sex Assigned at Female 05/12/2024 9:54 AM CDT Legal Sex Female 12:03 AM CDT Gender Identity Female 05/12/2024 9:54 AM CDT Sexual Orientation Not on file Last Filed Vital Signs Vital Sign Reading Time Taken Comments Blood Pressure 132/78 05/29/2024 10:06 AM EDT Pulse 70 05/29/2024 10:06 AM EDT Temperature 36.9 C (98.5 F) 05/29/2024 10:06 AM EDT Respiratory Rate - - Oxygen Saturation 99% 05/29/2024 10:06 AM EDT Inhaled Oxygen Concentration - - Weight 127 kg (279 lb) 05/29/2024 10:06 AM EDT Height 170.2 cm (5' 7 ) 05/29/2024 10:06 AM EDT Body Mass Index 43.7 05/29/2024 10:06 AM EDT Plan of Treatment Health Maintenance Due Date Last Done Comments Dental Cleaning/Exam 1978 Pneumococcal: Ped (0 to 5 Yrs) and At-Risk Member (6 to 64 Yrs) (1 of 2 - PCV) 1997 Tetanus Diphtheria and Pertussis Immunization (1 - Tdap) 1997 Colorectal Cancer Screening 2008 Hepatitis B Immunization (3 of 3 - 19+ 3-dose series) 09/19/2023 04/16/2023, 03/19/2023 Covid-19 Immunization (3 - 2023- season) 2024 10/19/2020, 09/07/2020 Influenza Immunization (Season Ended) 2025 Breast Cancer Screening 2025 10/14/19 24, 06/15/2016 Cervical Cancer Screening 12/01/2028 12/02/2023 HIB Immunization Aged Out No longer e ligible based on patient's age to complete this topic HPV Immunization Aged Out No longer e ligible based on patient's age to complete this topic Hepatitis A Immunization Aged Out No longer eligible based on patient's age to complete this topic Polio Immunization Aged Out No longer eligible based on patient's age to complete this topic Insurance MEDBEN NO COPAY NB Care Teams Party Coordinator Relationship Specialty [place] [id number] PCP - General Rubber Printing Machine Operator 05/19/24
[2025-03-02 19:03] LABS: Hematocrit 39.1 % (37.0-47.0); Hemoglobin 13.0 g/dL (12.2-16.2); Immature Granulocytes % 0.2 %; Mean Corpuscular HGB Conc 33.2 g/dL (31.8-35.4); Mean Corpuscular Hemoglobin 30.7 pg (27.0-31.2); Mean Corpuscular Volume 92.2 fl (81-99); Nucleated Red Blood Cells % 0 %; Platelet Count 214 K/mm3 (142-424); Red Blood Count 4.24 M/mm3 (4.20-5.40); Red Cell Distribution Width-SD 41.5 fL; White Blood Count 8.1 K/mm3 (4.8-10.8)
[2025-03-02 19:08] LABS: Alanine Aminotransferase 13 U/L (12-78); Albumin Level 4.1 g/dl (3.5-5.0); Albumin/Globulin Ratio 1.4 (1.1-1.8); Alkaline Phosphatase 80 U/L (38-126); Anion Gap 13.1 mEq/L (5-15); Aspartate Amino Transferase 18 U/L (14-36); Bilirubin,Total 0.4 mg/dl (0.2-1.3); Blood Urea Nitrogen 17 mg/dl (7-17); Calcium 8.4 mg/dl (8.4-10.2); Carbon Dioxide 24 mmol/L (22.0-30.0); Chloride 106 mmol/L (98-107); Cholesterol 140 mg/dl (140-200); Creatinine,Serum 0.70 mg/dl (0.52-1.04); Estimated Glomerular Filt Rate 90 ml/min (>60); GFR (African American) 109 ML/MIN (>60); Globulin 2.9 g/dL (1.3-3.2); Glucose 68 mg/dl (74-100); HDL Cholesterol 39 mg/dl (40-60); Potassium 4.1 mmoL/L (3.5-5.1); Sodium 139 mmol/L (136-145); Total Protein,Serum 7.0 g/dl (6.3-8.2); Triglycerides 146 mg/dl (30-150)
[2025-03-02 19:24] LABS: 25-OH Vitamin D, Total 29.7 ng/mL (30-100)
[2025-03-02 19:39] LABS: Thyroid Stimulating Hormone 0.68 uIU/mL (0.465-4.68)
[2025-03-02 19:43] LABS: Hemoglobin A1C 6.2 % (4.0-6.0)
[2025-03-02 19:58] LABS: Vitamin B12 828 pg/mL (239-931)
[2025-03-02 20:57] LABS: Hepatitis C Ab Qual. W/ RFX NEGATIVE (Negative)
[2025-03-04 08:49] LABS: Hepatitis B Surface Antigen Negative (Negative)
== END 2025-03-02 23:59 | disposition home or self-care (01) ==
LOC: LAB 18:38
PROVIDERS: PCP Nurse Practitioner; Visit Provider Nurse Practitioner
DX: Z11.59 Encounter for screening for other viral diseases (principal); I10 Essential (primary) hypertension; R73.01 Impaired fasting glucose; E55.9 Vitamin D deficiency, unspecified; E66.01 Morbid (severe) obesity due to excess calories; Z68.41 Body mass index [BMI] 40.0-44.9, adult
CPT/HCPCS: 80053; 80061; 82043; 82306; 82570; 82607; 83036; 84443; 85025; 86803; 87340; 87389

== ENCOUNTER → 2025-03-31 08:46 | Outpatient (CLI) | payer OTHER, SELFPAY | LOC: SL 04-07 08:46 | PROVIDERS: PCP Nurse Practitioner; Visit Provider Nurse Practitioner | DX: G47.36 Sleep related hypoventilation in conditions classified elsewhere; G47.33 Obstructive sleep apnea (adult) (pediatric) | CPT/HCPCS: G0399 ==

== ENCOUNTER 2025-07-02 06:15 | Emergency (ER) | payer BC, SELFPAY ==
--- OUTSIDE RECORDS SUMMARY | 2020-04-12 11:33 | XMS_ITS | Continuity of Care Document ---
Author Organization [facility] o Address [address] [place] [address] Phone Care Team Providers Care Water Operator Name Role Phone Jas WARNER, Vikas Unavailable [...] Provider Providers Copied on Encounter [facility] [place] [place] [facility] [place], [address], [place] tel:[phone] 00 [place] No Information 0 Jas Bean. Rickey E [place], [id number] , [place]. tel:[phone] Referring Provider: Rickey Correa E [facility] [place], [address] . tel:[phone] Office/outpat ient visit,est, mod [facility] [place], [address] [place] [address] [place], [address], [place] tel:[phone] 00 [place] Pain in left kneeLoose body in knee, left kneeOther articular cartilage disorders, unspecified site 0 Jas Bean. Rickey E [place], [place], [address] [place] [address] , [place]. [phone] Referring Provider: Vikas Ley, [address] [place], [address] . tel:[phone] [facility], [facility] E [address] [place], [place], [facility], tel:[phone] [facility] No Information 0 Jas Vikas. Rickey [address] [place], [place], [address] [place] [address] , [place]. [phone] Referring Provider: Vikas Ley, [address] [place], [address] . tel:[phone] Office/outpat ient visit,[facility] [place] E [address] [place], [place], [facility], tel:[phone] 00 [facility] Oth meniscus derangements , other medial meniscus, left knee [address], [place], [place], [address] [place] [address] , [place]. [phone] [facility] [place] E [place], [place], [facility], tel:[phone] 00 [facility] No Information 0 Jas Bean. Rickey [address] [place], [place], [address] [place] [address] , . tel:[phone] Family History Family Member Type Diagnosis Age At Onset No Information Payers Payer name Insurance type Covered democrat ID Authorkt rebolledo(s) [place] - [id number] Social History Type Description Quantity Date Captured Comments Sex Female Smoking Status No Information Gender Identity Female Chief Complaint And Reason For Visit No Information Reason For Referral Reason For Referral No Information Plan Of Treatment Date Type Action Status Future Order: Radiology Order MR I Knee WO Contrast ([id number]), Collected on: , Sent on: Sent History Of Present Illness Encounter Date Complaint History Of Prese nt Illness No Information Functional Status Date Functional Assessmen t No Information Instructions Date Instruction Additional Infor mation No Information Assessments Type Assessment Date No Information Patient Care Teams Name Effective Dates (start - stop) Status Members No Information
[2025-07-02 06:27] VITALS: BP 135/100; PULSE 82; RESP 18; TEMP 37.1; O2SAT 100; BMI 37.4
--- OUTSIDE RECORDS SUMMARY | 2025-07-02 06:29 | XMS_ITS | Clinical Summary ---
Author Organization [facility] Address [address] [place] [address] Care Team Providers Care Weed Cooking Operator Name Role Phone Ev Lowery Primary Care [...] Not on file Insurance ANTHEM Care Teams Weed Cooking Operator Relationship Specialty Start Date End Date Ev Lowery [address] [place] [phone] PCP - General Family Medicine 12/07/16
--- OUTSIDE RECORDS SUMMARY | 2025-07-02 06:29 | XMS_ITS | Clinical Summary ---
Author Organization [facility] Address [address], [address] [place] [address] Care Team Providers Care Photograph Retoucher Name Role Phone Unavailable Primary Care Provider [...] Plan of Treatment [place] [id number]
--- OUTSIDE RECORDS SUMMARY | 2025-07-02 06:29 | XMS_ITS | Clinical Summary ---
Author Organization [facility] Address [address] [place], [place] [address] Phone Care Team Providers Care Manager Of Broadcast Content Name Role Phone Ev Nicole MD Unavailable [...] (11/26/2018): Added automatically from request for surgery [id number] Other social stressor 12/25/20142018 Overview (12/25/2014): Was incarcerated in [id number]. Bipolar 2 disorder, major depressive episode 3 [...] PROCEDURE ; Surgeon: Vikas Zeng MD; Location: [facility] MAIN OR; Service: Gynecology CHOLECYSTECTOMY 12/05/2018 N/A [...] 2023 Virtual Colonography 2023 COVID-19 Vaccine ( - 2024- season) 2025 10/19/2020, 09/07/2020 Influenza Vaccine (#1) 2025 6 (Declined), 06/02/2011 Meningococcal B Vaccine Aged Out No l onger eligible based on patient's age to complete this topic Goals Goal Patient Goal Type Associated Problems Recent Progress Patient-Stated? Author quit smoking General Not on track( 016 11:25 AM EST) Yes Ev Nicole MD Maintain a healthy diet, exercise regularly and maintain an ideal body weight General No AndrewsFelicity, MARLA Stay Tobacco Free Lifestyle No AndrewsFelicity, DEAN OF STUDENTS Medical Devices Implanted Type Area Training And Development Rep Device Identifier Shelf Expiration Date Model / Serial / Lot Breast Procedures Procedure Name Priority Date/Time Associated Diagnosis Comments IMMUNOPATHOLOGIST CYTOLOGY REQUEST (PAP ONLY) Routine 01/05/2021 1:42 PM EDT Well woman exam with routine gynecological exam MM MAMMO DIGITAL KAT SCREEN AUG BILAT Routine 06/15/2016 2:12 PM EDT Encounter for screening mammogram for breast cancer from Last 3 Months or Most Recently Relevant to Health Maintenance Results * IMMUNOPATHOLOGIST CYTOLOGY REQUEST (PAP ONLY) (01/05/2021 1:42 PM EDT) CASE REPORT Gynecologic Cytology Report Case: [id number] Authorizing Provider: Felicity Andrews ARNP Collected: 01/05/2021 1342 Ordering Location: [facility] [place] Received: 01/05/2021 1342 First Screen: Adelso Conklin CT Specimen: LIQUID-BASED PAP - CERVICAL/ENDOCERV ICAL, Cervix, Endocervical 01/09/2021 12:33 PM EDT [facility] PAP FINAL DIAGNOSIS Negative for intraepithelial lesion or malignancy 01/09/2021 12:33 PM EDT [facility] at 1233 EDT MICROSCOPIC DESCRIPTION Microscopic examination is performed and the findings corroborate the diagnosis 01/09/2021 12:33 PM EDT [facility] PAP SMEAR ADEQUACY Satisfactory for evaluation 01/09/2021 12:33 PM EDT [facility] ENDOCERVICAL T-ZONE Transformation zone absent. This is not unusual in a woman 01/09/2021 12:33 PM EDT [facility] EMBEDDED IMAGES 12:33 PM EDT [facility] PAP DISCLAIMER The Pap Smear is a screening test that aids in the detection of cervical cancer and cancer precursors. Both false positive and false negative results can occur. The test should be used at regular intervals, and positive results should be confirmed before definitive therapy. Processed using the [employer] Automated cytology screening device ([employer]). 01/09/2021 12:33 PM EDT [facility] Thin Prep ENDOCERVICAL STRUCTURE / Unknown 01/05/2021 1:42 PM EDT 01/05/2021 1:42 PM EDT us Felicity Andrews DEAN OF [employer]UDENTS CYTOLOGY ORDERABLES Final Result [facility] [address] [id number] * MM MAMMO DIGITAL KAT SCREEN APR BILAT (06/15/2016 2:12 PM EDT) Anatomical Region Laterality Modality Breast Bilateral Mammography 06/17/2016 8:04 AM EDT Impressions 06/18/2016 7:38 AM EDT Negative ([id number]) ~ RECOMMENDATION: Routine screening mammogram at age [...] Advance Directives For more information, please contact: [phone] * Full Code (Latest Code Status on File) Date Activated Date Inactivated Comments 04/25/2013 8:14 AM 04/25/2013 5:36 PM * Full Code Date Activated Date Inactivated Comments 11/28/2012 6:33 PM 11/29/2012 6:09 PM Care Teams Manager Of Broadcast Content Relationship Specialty Start Date End Date Ev Nicole MD Family Medicine 03/02/13 Paul Hutchins MD [address] [place] [address] [address] [place] [id number] Consulting Physician Orthopaedic Surgery 02/11/15
--- OUTSIDE RECORDS SUMMARY | 2025-07-02 06:29 | XMS_ITS | Clinical Summary ---
Author Organization [facility] Address [address] [place] [id number] Care Team Providers Care Database Manager Name Role Phone Ev Lowery MD Primary [...] therelease of HIV test results or diagnoses. [id number] Allergies No known active allergies Active [...] of Treatment Not on file Care Teams Database Manager Relationship Specialty Start Date End Date Ev Lowery MD PCP - General Family Medicine 11/08/15
[2025-07-02] MEDS: NEOMYCIN-POLYMY-GRAM OPHTH SOLN 10ML BOTTLE OP (06:39)
[2025-07-02] MEDS: FLUORESCEIN SODIUM 1MG STRIP 1 MG OP (06:39)
[2025-07-02] MEDS: TETRACAINE 0.5% OPTH SOL 15ML OP (06:40)
--- NOTE | 2025-07-02 06:44 | HMH.EDGENADL ---
Discharge Plan Disposition Patient Disposition: Home, Self-Care Condition: Good Prescriptions Prescriptions: No Action cholecalciferol (vitamin D3) 1,250 mcg (50,000 unit) capsule 1,250 mcg PO WEEKLY lisinopril 5 mg tablet 5 mg PO DAILY Qty: 30 2RF bupropion HCl 300 mg tablet extended release 24 hr 300 mg PO DAILY Qty: 90 3RF Zepbound 2.5 mg/0.5 mL pen injector 2.5 mg SQ WEEKLY Qty: 2 0RF Rx Instructions: for 4 weeks ibuprofen 800 mg tablet 800 mg PO NEEDED PRN (Reason: Pain) Qty: 60 3RF Patient Comments: TAKE 1 TABLET BY MOUTH EVERY 8 HOURS NEEDED FOR PAIN Referrals Follow up/Referrals: Corie Blair APRN [Primary Care Provider, Family Practice] - See instructions Activity Restrictions/Add. Instructions Additional Instructions/Restrictions: You were evaluated in the ER and are believed to be appropriate for discharge at this time. Use the provided ofloxacin ointment 1 drop every 2 hours until you follow-up with your eye doctor. Use the provided erythromycin ointment. 1/2 inch strip into the affected eye every 4 hours until you follow-up with your eye doctor. Try to move up your eye doctor appointment to earlier this week if possible. If you are not able to see your eye doctor, ophthalmology is going to call you. Please answer any unfamiliar numbers so that you do not miss ophthalmology follow-up. Clinical Impressions Clinical Impression: Corneal abrasion Print Language Print Language: Citizen Of [place] Discharge ED Provider: Mauricio Urbina Adult HPI General Chief complaint: Eye Problems Stated complaint: R eye injury Time Seen by Provider: 07/02/25 06:18 Mode of Arrival: Ambulatory Source of Information: Patient Description of Symptoms (Recalled from ER Triage Doc. by RN): pt presents with c/o pain to right eye and swelling that began x1 day ago. Pt reports pain relieved while wearing contacts, with pain increasing with bright lights. Pt reports possibly scratching eye when attempting to place medicated drops in that she had at home. History of Present Illness HPI narrative: 44-year-old female who wears contacts presents to the ER complaining of right eye pain that started yesterday. Patient reports her pain is somewhat relieved by wearing contacts but is worse with bright lights. Patient reports yesterday she felt like she was having an allergy flareup and her eyes were itchy. She used her allergy medications and nasal spray. She states this morning her left eye is better but her right eye is significantly painful, red, tearing. She is worried that she scratched the eye. Patient reports attempting to use erythromycin ointment that she had at home in the eye without significant improvement. She came to the ER for further evaluation. Denies fevers or chills, no puslike or crusty discharge from the eye, no sore throat or runny nose, no cough or congestion, no chest pain or difficulty breathing, no nausea, vomiting, diarrhea, or abdominal pain. No other complaints or concerns. Patient denies any known foreign body in the eye. Related Data Home Medications ?Medication ?Instructions ?Recorded ?Confirmed cholecalciferol (vitamin D3) 1,250 1,250 mcg PO WEEKLY 09/04/23 02/24/25 mcg (50,000 unit) capsule Previous Rx's ?Medication ?Instructions ?Recorded ibuprofen 800 mg tablet 800 mg PO NEEDED PRN Pain #60 11/19/23 tabs bupropion HCl 300 mg 24 hr tablet, 300 mg PO DAILY #90 tabs 06/30/25 extended release lisinopril 5 mg tablet 5 mg PO DAILY #30 tabs 06/30/25 tirzepatide (weight loss) 2.5 2.5 mg (0.5 mL) SQ WEEKLY #2 mL 06/30/25 mg/0.5 mL subcutaneous pen injector (Zepbound) Allergies Allergy/AdvReac Type Severity Reaction Status Date / Time No Known Allergies Allergy Verified 02/24/25 13:37 [facility] Disclaimer: The information contained in this section may have been updated after the patient was seen, as this information can be updated by other users. Medical History (Updated 07/02/25 @ 06:59 by Mauricio Urbina MD) OLIVA (obstructive sleep apnea) Mood disorder Witnessed apneic spells Snoring Vitamin D deficiency IFG (impaired fasting glucose) Essential hypertension Obesity History of anxiety History of depression Surgical History Hx of colposcopy with cervical biopsy Hx of tubal ligation Hx of cholecystectomy Hx of breast augmentation Hx of section History of placement of ear tubes Hx of tonsillectomy Family History Mother Cancer Breast cancer Grandfather Cancer Stomach cancer Grandmother FHx: mental illness Anxiety and depression. Grandmother Diabetes Social History (Updated 02/24/25 @ 13:36 by Amy Porter MA) Smoking Status: Current every day smoker alcohol intake: current alcohol intake frequency: holidays/special occasions only substance use type: marijuana current occupational status: employed Travel in the last 8 weeks?: None Have you lived/traveled outside US in past 30 days?: No Contact w/someone who lives/traveled outside US past 30 days?: No Exposure to someone with infectious disease in past 14 days?: No Do you have a fever (greater than 100.4 F or 38 C)?: No Have you tested positive for COVID-19?: No Exposed to someone with COVID-19 in past 14 days?: No Do you have a sore throat?: No Do you have a cough?: No Do you have any weakness?: No Do you have any diarrhea?: No Are you experiencing any unusual bleeding?: No Do you have any muscle aches/pain?: No Do you have any abdominal pain?: No Are you experiencing loss of taste or smell?: No ROS Obtained: Yes Systems reviewed as appropriate & no additional complaints except as documented per HPI Physical Exam General General appearance: alert and in no apparent distress Head Head exam: atraumatic and normocephalic Eye Eye exam: Present PERRL, EOMI and conjunctival redness (right); Absent scleral icterus, periorbital swelling or periorbital tenderness Expanded Eye Exam Visual acuity (R) = 20/: 100 Visual acuity (L) = 20/: 100 With correction: No IOP (R) in mmH IOP (L) in mmH IOP measured with: [employer] (icare) Comment: Fluorescein Wood lamp exam demonstrates 2 mm abrasion nearly directly at the center of the right cornea ENT ENT exam: Present mucous membranes moist Neck Neck exam: Present normal inspection and full ROM Chest Chest inspection: Present symmetric chest wall rise Respiratory Respiratory exam: Absent respiratory distress or stridor Cardiovascular Cardiovascular exam: Present regular rate and normal rhythm Extremities Exam Extremities exam: Present full ROM Neurological Exam Neurological exam: Present alert and oriented X3; Absent motor sensory deficit Psychiatric Psychiatric exam: Present normal affect and normal mood Skin Skin exam: Present warm and dry Medical Decision Making Medical Records Medical records reviewed: Yes I reviewed the patient's medical records. Screening: Per USPSTF and CDC recommendations, given the prevalence of disease in our region, it is our hospital?s policy to screen for HIV and viral Hepatitis for all patients aged 18 and over and those with ongoing risk factors. Perfecto Inquiry Pt receiving controlled substance: No Vital Signs: 07/02/25 06:27 07/02/25 07:06 Temperature 98.8 F 98.6 F Temperature Source Oral Oral Pulse Rate 85 Pulse Rate [Radial] 82 Respiratory Rate 18 16 Blood Pressure 132/85 Blood Pressure [Right Arm] 135/100 H Blood Pressure Mean [Right Arm] 111 Blood Pressure Position [Right Arm] Sitting 02 Sat by Pulse Oximetry 100 Oxygen Delivery Method Room Air Room Air Orders (Tests/Meds): ED MEDICATIONS Discontinued Medications Generic Name Dose Route Start Last Admin Trade Name Freq PRN Reason Stop Dose Admin Erythromycin 1 gm 07/02/25 06:47 07/02/25 07:00 Erythromycin Base 1 Gm Oint...G. OP 07/02/25 06:48 1 gm ONCE ONE Administration Fluorescein Sodium 1 mg 07/02/25 06:34 07/02/25 06:39 Fluorescein Sodium 1mg Strip OP 07/02/25 06:35 1 mg ONCE ONE Administration Neomycin/Polymyxin/Gramicidin 0 ml 07/02/25 11:00 07/02/25 06:39 Xpddzcyn-Faygjm-Sbnq Ophth Soln 10ml Bottle OP 08/01/25 10:59 1 drp AC LUPE Administration Ofloxacin 0 ml 07/02/25 07:00 07/02/25 06:55 Ofloxacin 0.3% Ophth Drops 5ml OP 08/01/25 06:59 5 ml Q2H LUPE Administration Tetracaine HCl 0 ml 07/02/25 06:34 07/02/25 06:40 Tetracaine 0.5% Opth Lea 15ml OP 07/02/25 06:35 1 ml ONCE ONE Administration Medical Decision Narrative: In summary, this 44-year-old female presents to the emergency department today with concerns of right eye pain and scratching sensation. On initial evaluation patient is hemodynamically stable, afebrile, exam notable for erythema and tearing of the right eye, [place] lamp fluorescein exam with corneal abrasion 2 mm in diameter and nearly at the direct center of the right cornea. Normal intraocular pressure. Vision at baseline uncorrected. Differential diagnosis includes but is not limited to corneal ulcer, corneal abrasion, I considered the possibility of foreign body but appreciate no evidence of this, no evidence of active infection. I do not believe labs or imaging are indicated at this time. Patient was initially treated with tetracaine and fluorescein in order to examine the eye. I then placed neomycin drop in the eye for antibiotic prophylaxis that would cover for potential contact borne pathogens since patient is a daily contact wearer. Due to the location of the abrasion I reached out to and spoke with remote sensing engineer Dr. Bustos who initially recommended ofloxacin drops rather than neomycin polymyxin as well as use of erythromycin ointment. Ofloxacin erythromycin were ordered. She recommended ofloxacin every 2 hours and erythromycin every 4 hours until follow-up with her eye doctor. Dr. Bustos recommended the patient just see her outpatient nut tightener and on further discussion was not recommending immediate ophthalmology follow-up with clinic unless the patient cannot get into her nut tightener. I appreciate her recommendations. Patient was prepared for discharge. I gave the patient all instructions including symptomatic monitoring and management, instructed her to not use her contacts at this time, use of the antibiotics that she was provided, follow-up instructions for her nut tightener to she states she thinks she can get into next week but is not going to be able to see in the next 1 to 2 days, and return precautions for the ER. Patient indicated understanding to all these instructions and as she was preparing to discharge I received a callback from Dr. Bustos. She had reconsidered and stated that she has availability in her schedule today if the patient would like to be seen in [place] at ophthalmology. Patient would like this and I explained this to Dr. Bustos. [facility] took the patient's contact information and is going to call her later today to schedule an appointment to be seen by Dr. Bustos today for further evaluation. Patient is very grateful for this. I explained all other discharge instructions are the same until she has further information from ophthalmology. She was discharged in stable condition. Critical Care Critical Care Time Critical Care Time: No
--- NOTE | 2025-07-02 06:53 | PC.NURSE ---
Called for an ophthalmology consult
[2025-07-02] MEDS: OFLOXACIN 0.3% OPHTH DROPS 5ML OP (06:55)
[2025-07-02] MEDS: ERYTHROMYCIN BASE 1 GM OINT...G. OP (07:00)
[2025-07-02 07:06] VITALS: BP 132/85; PULSE 85; RESP 16; TEMP 37; O2SAT 100
== END 2025-07-02 07:11 | disposition home or self-care (01) ==
PROVIDERS: Emergency Provider Emergency Medicine; PCP Nurse Practitioner
DX: S05.01XA Injury of conjunctiva and corneal abrasion without foreign body, right eye, initial encounter (principal); X58.XXXA Exposure to other specified factors, initial encounter
CPT/HCPCS: 99283